=== PATIENT | male | born 1965 | race Caucasian/White ===

== ENCOUNTER 2024-01-19 17:00 | Emergency (ER) | payer SELFPAY ==
[~2024-01-19] VITALS: Ht 182.9 cm; Wt 126.6 kg
[2024-01-19] MEDS ORDERED: CHLORTHALIDONE50 MG PO (17:17)
[2024-01-19] MEDS ORDERED: SIMVASTATIN40 MG PO (17:17)
[2024-01-19] MEDS ORDERED: METFORMIN HCL500 M1 PO (17:17)
[2024-01-19] MEDS ORDERED: OZEMPIC0.25 MG/02 SQ (17:17)
[2024-01-19] MEDS ORDERED: IRBESARTAN300 MG PO (17:17)
[2024-01-19] MEDS ORDERED: ZITHROMAX250 MG PO (17:18)
[2024-01-19] MEDS ORDERED: predniSONE 20 MG TAB PO ONE (18:15)
[2024-01-19] MEDS ORDERED: ALBUTEROL/IPRATROPIUM 3 ML NEB INH ONE (18:15)
[2024-01-19] MEDS ORDERED: PREDNISONE20 MG PO (19:28)
[2024-01-19] MEDS ORDERED: VENTOLIN HFA18 GM INH (19:28)
[2024-01-19 19:45] LABS: INFLUENZA B NAA NEGATIVE (NEGATIVE); RESPIRATORY SYNCYTIAL VIR NAA NEGATIVE (NEGATIVE)
[2024-01-19 19:47] VITALS: BP 141/85
== END 2024-01-19 19:47 | disposition home or self-care (01) ==
LOC: ED 17:00
PROVIDERS: Emergency Medicine
DX: R06.02 Shortness of breath (principal); I10 Essential (primary) hypertension; E11.9 Type 2 diabetes mellitus without complications; E78.5 Hyperlipidemia, unspecified; G47.30 Sleep apnea, unspecified; Z88.0 Allergy status to penicillin; Z79.899 Other long term (current) drug therapy; Z79.84 Long term (current) use of oral hypoglycemic drugs
CPT/HCPCS: 71046; 87502; 94640; 99285-25; J7512; U0002